=== PATIENT | male | born 1970 | race Caucasian/White ===

== ENCOUNTER 2017-04-03 10:50 | Emergency (ER) | payer OTHER ==
[~2017-04-03] VITALS: Ht 180.3 cm; Wt 100.8 kg
[2017-04-03 13:25] VITALS: BP 146/97
== END 2017-04-03 13:53 | disposition home or self-care (01) ==
LOC: ED 10:50
DX: M54.12 Radiculopathy, cervical region (principal); R20.2 Paresthesia of skin
CPT/HCPCS: J1885; J2270